=== PATIENT | female | born 1995 | race American Indian/Alaskan Native ===

== ENCOUNTER 2017-09-09 13:00 | Emergency (ER) | payer SELFPAY ==
--- NOTE | 2017-09-09 18:03 | Emergency Department Report ---
ED Upper Extremity Inj HPI - General Chief Complaint: Extremity Injury, Upper Stated Complaint: RIGHT ARM PAIN Time Seen by Provider: 09/09/17 16:18 Source: patient Mode of arrival: Ambulatory Limitations: No Limitations - History of Present Illness Initial Comments: This is a 22-year-old female nontoxic, well nourished in appearance, no acute signs of distress presents to the ED with c/o of right elbow pain x2 days. Patient denies any trauma. Patient stated she wake up of pain. Patient describes pain as aching with level of 8/10. 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 Patient denies any joint swelling, joint redness, decreased ROM, fever, chills, headache, nausea, vomiting, chest pain, shortness of breathe, numbness, tingling, abdominal pain, or back pain. Patient denies any allergies or significant PMH. MD Complaint: Injury to:: right, elbow -: days(s) (2) Other Extremity Injury: Elbow: Left Other Injuries: none Place: home Severity scale (0 -10): 8 Improves With: immobilization Worsens With: movement of extremity Associated Symptoms: denies other symptoms. denies: weakness, numbness, neck pain, suspects foreign body, nausea/vomiting, heard/felt popping sensat - Related Data Previous Rx's Medication Instructions Recorded Last Taken Type Cyclobenzaprine [Flexeril] 10 mg PO QHS PRN #7 tablet 09/09/17 Unknown Rx Ibuprofen [Motrin] 600 mg PO Q8H PRN #30 tablet 09/09/17 Unknown Rx Allergies Allergy/AdvReac Type Severity Reaction Status Date / Time No Known Allergies Allergy Unverified 09/09/17 13:13 ED Review of Systems ROS: Stated complaint: RIGHT ARM PAIN Other details as noted in HPI Constitutional: denies: chills, fever Eyes: denies: eye pain, eye discharge, vision change ENT: denies: ear pain, throat pain Respiratory: denies: cough, shortness of breath, wheezing Cardiovascular: denies: chest pain, palpitations Endocrine: no symptoms reported Gastrointestinal: denies: abdominal pain, nausea, diarrhea Genitourinary: denies: urgency, dysuria, discharge Musculoskeletal: arthralgia. denies: back pain, joint swelling Skin: denies: rash, lesions Neurological: denies: headache, weakness, paresthesias Psychiatric: denies: anxiety, depression Hematological/Lymphatic: denies: easy bleeding, easy bruising ED Past Medical Hx - Past Medical History Previous Medical History?: No Additional medical history: "White Coat syndrome" - Surgical History Past Surgical History?: No - Social History Smoking Status: Never Smoker Substance Use Type: None - Medications Home Medications: Home Medications Medication Instructions Recorded Confirmed Last Taken Type Cyclobenzaprine [Flexeril] 10 mg PO QHS PRN #7 tablet 09/09/17 Unknown Rx Ibuprofen [Motrin] 600 mg PO Q8H PRN #30 tablet 09/09/17 Unknown Rx ED Physical Exam - General Limitations: No Limitations General appearance: alert, in no apparent distress - Head Head exam: Present: atraumatic, normocephalic - Eye Eye exam: Present: normal appearance, PERRL, EOMI Pupils: Present: normal accommodation - ENT ENT exam: Present: normal exam, normal orophraynx, mucous membranes moist, TM's normal bilaterally, normal external ear exam - Neck Neck exam: Present: normal inspection, full ROM. Absent: tenderness, meningismus, lymphadenopathy, thyromegaly - Respiratory Respiratory exam: Present: normal lung sounds bilaterally. Absent: respiratory distress, wheezes, rales, rhonchi, stridor, chest wall tenderness, accessory muscle use, decreased breath sounds, prolonged expiratory - Cardiovascular Cardiovascular Exam: Present: regular rate, normal rhythm, normal heart sounds. Absent: irregular rhythm, systolic murmur, diastolic murmur, rubs, gallop - GI/Abdominal GI/Abdominal exam: Present: soft, normal bowel sounds. Absent: distended, tenderness, guarding, rebound, rigid, diminished bowel sounds - Rectal Rectal exam: Present: deferred - Extremities Exam Extremities exam: Present: normal inspection, full ROM, tenderness, normal capillary refill. Absent: pedal edema, joint swelling, calf tenderness - Expanded Upper Extremity Exam Right General: Present: normal inspection Shoulder Exam: Present: normal inspection, full ROM Upper Arm exam: Present: normal inspection, full ROM Elbow exam: Present: normal inspection, full ROM, tenderness. Absent: swelling , abrasion, laceration, ecchymosis, deformity, crepidus, dislocation, erythema, effusion, pain w/ pronation/supination, tenderness over radial head Forearm Wrist exam: Present: normal inspection, full ROM. Absent: tenderness, swelling, abrasion, laceration, ecchymosis, deformity, crepidus, dislocation, erythema, tenderness over anatomical snuff box, pain with axial thumb loading Hand Wrist exam: Present: normal inspection, full ROM. Absent: tenderness, swelling, abrasion, laceration, ecchymosis, deformity, crepidus, dislocation, erythema, amputation, nail avulsion, subungual hematoma Neuro motor exam: Present: wrist extension intact, thumb opposition intact, thumb IP flexion intact, thumb adduction intact, fingers 2-5 abduction intact Neurosensory exam: Present: 2-point discrimination, radial nerve intact, ulnar nerve intact, median nerve intact Vascular: Present: vascular compromise, normal capillary refill, radial pulse, brachial pulse, ulnar pulse - Back Exam Back exam: Present: normal inspection, full ROM. Absent: tenderness, CVA tenderness (R), CVA tenderness (L), muscle spasm, paraspinal tenderness, vertebral tenderness, rash noted - Neurological Exam Neurological exam: Present: alert, oriented X3, CN II-XII intact, normal gait, reflexes normal - Psychiatric Psychiatric exam: Present: normal affect, normal mood - Skin Skin exam: Present: warm, dry, intact, normal color. Absent: rash ED Course Vital Signs 09/09/17 13:08 Temperature 98.3 F Pulse Rate 98 H Respiratory 18 Rate Blood Pressure 173/82 O2 Sat by Pulse 100 Oximetry - Reevaluation(s) Reevaluation #1: 09/09/17 18:07 Patient is speaking in full sentences with no signs of distress noted. ED Medical Decision Making - Medical Decision Making This is a 22-year-old female that presents with elbow strain vs muscle strain x2 days. Patient was examined by me and patient is stable. X-ray has been obtained and dictated by radiologist within normal limits. Patient is notified of x-ray results with no questionable condition. There is no joint swelling or joint redness. No pain on the lateral epicondy region. Patient received Motrin in the ED. Patient also received a shoulder immobilizer in the ED for pain. Patient was instructed to RICE therapy. Patient was instructed to Follow-up with a orthopedic doctor in 3-5 days or if symptoms worsen and continue return to emergency room as soon as possible. At time of discharge, the patient does not seem toxic or ill in appearance. No acute signs of distress noted. Patient agrees to discharge treatment plan of care. No further questions noted by the patient.. Critical care attestation.: If time is entered above; I have spent that time in minutes in the direct care of this critically ill patient, excluding procedure time. ED Disposition Clinical Impression: Strain of elbow, left Qualifiers: Encounter type: initial encounter Qualified Code(s): S56.912A - Strain of unspecified muscles, fascia and tendons at forearm level, left arm, initial encounter Disposition: TO HOME OR SELFCARE Is pt being admited?: No Does the pt Need Aspirin: No Condition: Stable Instructions: Elbow Sprain (ED), Arthralgia (ED), RICE Therapy (ED), Ibuprofen (By mouth) Additional Instructions: Follow-up with a orthopedic doctor in 3-5 days or if symptoms worsen and continue return to emergency room as soon as possible. Rest and ice extremity. Prescriptions: Cyclobenzaprine [Flexeril] 10 mg PO QHS PRN #7 tablet PRN Reason: Muscle Spasm Ibuprofen [Motrin] 600 mg PO Q8H PRN #30 tablet PRN Reason: Pain Referrals: PRIMARY CAREMD [Primary Care Provider] - 3-5 Days NOEMY BLAKELY MD [Staff Physician] - 3-5 Days [facility] [Outside] - 3-[address] [facility] [Outside] - 3-5 Days
[2017-09-09] MEDS ORDERED: MOTRIN PO ONE (18:10)
--- NOTE | 2017-09-09 18:29 | XRay Report ---
FINAL REPORT EXAM: XR ELBOW 3+V RT HISTORY: elbow pain TECHNIQUE: AP, lateral, and oblique views of the right elbow PRIORS: None. FINDINGS: No evidence for acute fracture or dislocation is seen. The soft tissues are unremarkable. The anterior fat pad demonstrates a sail sign. The posterior fat pad is visualized. These findings are consistent with a joint effusion. Bony mineralization is normal. IMPRESSION: No acute bony abnormality noted. Joint effusion.
[2017-09-09 18:54] VITALS: BP 143/84
== END 2017-09-09 19:01 | disposition home or self-care (01) ==
LOC: ED 13:00
DX: S56.912A Strain of unspecified muscles, fascia and tendons at forearm level, left arm, initial encounter (principal); M25.521 Pain in right elbow; X58.XXXA Exposure to other specified factors, initial encounter; Y93.89 Activity, other specified; Y99.8 Other external cause status; Y92.009 Unspecified place in unspecified non-institutional (private) residence as the place of occurrence of the external cause

== ENCOUNTER 2018-12-06 12:21 | Inpatient (IN) | payer MEDICAID ==
[2018-12-06] MEDS ORDERED: BRETHINE SUB-Q PRN (14:04)
[2018-12-06] MEDS ORDERED: BRETHINE IVP PRN (14:04)
[2018-12-06] MEDS ORDERED: MINERAL OIL PO PRN (14:04)
[2018-12-06 14:50] LABS: Hemoglobin 12.4 gm/dl (10.1-14.3); Mean Corpuscular HGB Conc 35 % (30-34); Mean Corpuscular Volume 86 fl (79-97); Platelet Count 168 K/mm3 (140-440); Red Blood Count 4.21 M/mm3 (3.65-5.03); Red Cell Distribution Width 12.7 % (13.2-15.2)
[2018-12-06] MEDS ORDERED: PITOCin/NS 30 UNIT/500ML 30 UNITS/500 ML BAG IV SCH (15:00)
[2018-12-06] MEDS ORDERED: XYLOCAINE 2% INFILTRATI ONE ×2 (15:00→18:45)
[2018-12-06] MEDS ORDERED: AMPICILLIN/NS 2 GM/100 ML 2 GM/100 ML BAG IV ONE (15:04)
[2018-12-06] MEDS ORDERED: CERVIDIL VG ONE (15:04)
[2018-12-06 17:26] LABS: Alanine Aminotransferase 8 units/L (7-56); Uric Acid 6.6 mg/dL (3.5-7.6)
--- NOTE | 2018-12-06 18:56 | History and Physical Report ---
History of Present Illness Date of examination: 12/06/18 Date of admission: 12/06/18 12:21 Chief complaint: Sent from office for induction of labor History of present illness: 23 year old sent to L&D from office for induction of labor due to elevated blood pressure. Patient states she was seen at [facility] office today and they recommended induction of labor. Patient received care at [facility] office and was comanaged by [facility]. LMP 03/08/2018. EDC 12/13/2018. significant for the following: chronic hypertension (on Labetalol 200 mg po BID), maternal obesity, maternal tachycardia (seen by [facility]), sickle cell trait (FOB negative), vitamin D deficiency (supplemented with Vitamin D), GBS positive. labs are as follows: A+, antibody screen negative, pap smear negative, rubella immune, RPR nonreactive, hepatitis B surface antigen negative, HIV negative, sickle cell trait, GC negative, CT negative, trichomonas negative, GBS positive, quad screen negative, 1 hour sugar test 127. Past History Past Medical History: hypertension, other (obesity, sickle cell trait, tachycardia) Past Surgical History: no surgical history [facility] History: denies: abnormal PAP smear, chlamydia, gonorrhea, hepatitis B, hepatitis C, herpes, HIV, syphilis, trichomonas Family/Genetic History: diabetes, hypertension, stroke, cancer, other (asthma) Social history: lives with family, full code. denies: smoking, alcohol abuse, prescription drug abuse, IV drug use - Obstetrical History Expected Date of Delivery: 12/13/18 Actual Gestation: 39 Week(s) 0 Day(s) : 1 Para: 0 Hx # Term Pregnancies: 1 Number of Pregnancies: 0 Spontaneous Abortions: 0 Induced : 0 Number of Living Children: 0 Medications and Allergies Allergies Allergy/AdvReac Type Severity Reaction Status Date / Time No Known Allergies Allergy Unverified 09/09/17 13:13 Home Medications Medication Instructions Recorded Confirmed Last Taken Type Labetalol 200 mg PO BID 12/06/18 12/06/18 12/06/18 History 400 mg Active Meds: Active Medications Acetaminophen (Tylenol) 650 mg PO Q6H PRN PRN Reason: Pain, Mild (1-3) Docusate Sodium (Colace) 100 mg PO BID [facility] Ephedrine Sulfate (Ephedrine Sulfate) 10 mg IV Q2M PRN PRN Reason: Hypotension Famotidine (Pepcid) 20 mg PO BID [facility] Oxytocin/Sodium Chloride (Pitocin/Ns 20 Unit/1000ml Drip) 20 units in 1,000 mls @ 125 mls/hr IV DIRECT [facility] Oxytocin/Sodium Chloride (Pitocin/Ns 30 Unit/500ml) 30 units in 500 mls @ 1 mls/hr IV TITR [facility]; Protocol Lactated Ringer's (Lactated Ringers) 1,000 mls @ 125 mls/hr IV DIRECT [facility] Ampicillin Sodium (Ampicillin/Ns 1 Gm/50 Ml) 1 gm in 50 mls @ 100 mls/hr IV Q4HR [facility]; Protocol Labetalol HCl (Normodyne) 200 mg PO BID [facility] Mineral Oil (Mineral Oil) 30 ml PO QHS PRN PRN Reason: Constipation Terbutaline Sulfate (Brethine) 0.25 mg SUB-Q ONCE PRN PRN Reason: Hyperstimulation/Hypertonicity Review of Systems Constitutional: no fever, no chills, no fatigue, no weakness Eyes: no loss of vision Cardiovascular: no chest pain, no palpitations, no lightheadedness, no shortness of breath Gastrointestinal: no abdominal pain, no nausea, no vomiting Genitourinary: no vaginal bleeding, no leakage of fluid, no dysuria, no genital sores Integumentary: no blisters Neurological: no headaches, no migraines, no double vision - Vital Signs Vital signs: Vital Signs Pulse BP 116 H 187/100 12/06/18 13:16 12/06/18 13:16 Temp Pulse Resp BP Pulse Ox 99.7 F H 120 H 18 122/59 97 12/06/18 17:45 12/06/18 17:54 12/06/18 13:38 12/06/18 17:54 12/06/18 13:38 - Physical Exam Abdomen: Positive: normal appearance, soft. Negative: distention, tenderness, guarding, rigidity Genitourinary (Female): Positive: normal external genitalia, normal perenium. Negative: perineal/vulvar lesions Vagina: Positive: normal moisture Uterus: Positive: enlarged (size=dates) Anus/Rectum: Positive: normal perianal skin Extremities: Positive: normal. Negative: tenderness, edema - Obstetrical FHR: category 1 Uterine Contraction Monitor Mode: External Cervical Dilatation: 0 (Per RN cervix is closed and thick) Uterine Contraction Pattern: Absent Results Result Diagrams: 12/06/18 14:27 12/06/18 16:24 Abnormal lab results 12/06/18 12/06/18 Range/Units 14:27 16:24 MCHC 35 H (30-34) % RDW 12.7 L (13.2-15.2) % Creatinine 0.6 L (0.7-1.2) mg/dL All other labs normal. Assessment and Plan A: at 39 weeks gestation. Chronic hypertension (takes Labetalol). Maternal tachycardia (has been evaluated by [facility]) GBS positive. Obesity. P: Admit. Cervidil for cervical ripening, followed by Pitocin induction of labor. GBS prophylaxis. PIH labs, BP monitoring. Continue Labetalol. Discussed with patient risks and benefits of Cervidil cervical ripening and Pitocin induction of labor. Patient consented to Cervidil cervical ripening and Pitocin induction of labor.
[2018-12-06] MEDS: TYLENOL PO PRN (19:46)
[2018-12-06] MEDS ORDERED: PEPCID ONE (19:47)
[2018-12-06] MEDS: PEPCID PO SCH (19:48)
[2018-12-06] MEDS: COLACE PO SCH (21:23)
[2018-12-06] MEDS ORDERED: NORMODYNE PO SCH (22:00)
[2018-12-06 22:40] LABS: Bilirubin,Urine NEG (Negative); Blood,Urine NEG (Negative); Color,Urine Yellow (Yellow); Mucus,Urine FEW /HPF; Protein,Urine <15 mg/dL mg/dL (Negative); Urobilinogen,Urine < 2.0 mg/dL (<2.0); WBC,Urine < 1.0 /HPF (0.0-6.0)
[2018-12-06 23:16] LABS: Amphetamine Screen,Urine PRESUMPTIVE NEGATIVE; Benzodiazepines Screen,Urine PRESUMPTIVE NEGATIVE; Cannabinoid Screen,Urine PRESUMPTIVE NEGATIVE; Cocaine Screen,Urine PRESUMPTIVE NEGATIVE; Methadone Screen,Urine PRESUMPTIVE NEGATIVE; Opiate Screen,Urine PRESUMPTIVE NEGATIVE
[2018-12-07] MEDS ORDERED: CERVIDIL VG ONE (04:41)
--- NOTE | 2018-12-07 09:38 | Progress Note ---
Assessment and Plan A: at 39 weeks, 1 day gestation. Chronic hypertension. GBS positive. Maternal tachycardia. P: Continue Cervidil cervical ripening. Plan Pitocin induction of labor after ripening complete. Hold Labetalol for now due to low BPs. Subjective - Subjective Date of service: 12/07/18 Principal diagnosis: Term ; chronic hypertension Interval history: having cervical ripening and labor induction due to chronic hypertension. BPs have been controlled; patient denies headache, visual disturbance, N/V, abdominal or epigastric pain. Patient reports active movement. She denies contractions, LOF, or VB. Patient reports: movement normal, no loss of fluid, no vaginal bleeding, no contractions Objective - Vital Signs Vital Signs: Vital Signs - 12hr 12/06/18 12/06/18 12/06/18 21:54 22:09 22:18 Temperature 98.0 F Pulse Rate 103 H 110 H Respiratory 18 Rate Blood Pressure 110/70 102/65 O2 Sat by Pulse Oximetry 12/06/18 12/06/18 12/06/18 22:55 23:05 23:54 Temperature Pulse Rate 102 H 108 H 110 H Respiratory Rate Blood Pressure 95/55 99/55 88/53 O2 Sat by Pulse Oximetry 12/07/18 12/07/18 12/07/18 00:53 01:53 02:26 Temperature Pulse Rate 100 H 96 H 99 H Respiratory Rate Blood Pressure 95/55 89/51 112/67 O2 Sat by Pulse Oximetry 12/07/18 12/07/18 12/07/18 02:55 03:54 05:20 Temperature 98.1 F Pulse Rate 96 H 99 H 99 H Respiratory 18 Rate Blood Pressure 98/57 95/51 O2 Sat by Pulse 98 Oximetry 12/07/18 12/07/18 12/07/18 05:21 05:25 05:30 Temperature Pulse Rate 100 H 105 H 108 H Respiratory Rate Blood Pressure 102/58 O2 Sat by Pulse 97 97 Oximetry 12/07/18 12/07/18 12/07/18 05:35 05:53 06:53 Temperature Pulse Rate 98 H 100 H 101 H Respiratory Rate Blood Pressure 98/53 97/53 O2 Sat by Pulse 97 Oximetry 12/07/18 12/07/18 07:54 08:54 Temperature Pulse Rate 100 H 120 H Respiratory Rate Blood Pressure 98/54 126/77 O2 Sat by Pulse Oximetry - Exam Abdomen: Present: normal appearance, soft. Absent: distention, tenderness, guarding, rigidity Uterus: Present: normal, firm, fundal height above umbilicus. Absent: bogginess, tenderness FHR: category 1 Uterine Contraction Monitor Mode: External Cervical Dilatation: 0 (Cervix closed and thick at 3 AM.) Uterine Contraction Pattern: Absent Extremities: normal - Labs Labs: Abnormal Labs 12/06/18 12/06/18 14:27 16:24 MCHC 35 H RDW 12.7 L Creatinine 0.6 L Laboratory Results - last 24 hr 12/06/18 12/06/18 12/06/18 14:27 14:27 16:24 WBC 6.8 RBC 4.21 Hgb 12.4 Hct 36.0 MCV 86 MCH 30 MCHC 35 H RDW 12.7 L Plt Count 168 Creatinine 0.6 L Estimated GFR > 60 Uric Acid 6.6 AST 13 ALT 8 Lactate Dehydrogenase 166 Urine Color Urine Turbidity Urine pH Ur Specific [place] Urine Protein Urine Glucose (UA) Urine Ketones Urine Blood Urine Nitrite Urine Bilirubin Urine Urobilinogen Ur Leukocyte Esterase Urine WBC (Auto) Urine RBC (Auto) U Epithel Cells (Auto) Urine Mucus Urine Opiates Screen Urine Methadone Screen Ur Barbiturates Screen Ur Phencyclidine Scrn Ur Amphetamines Screen U Benzodiazepines Scrn Urine Cocaine Screen U Marijuana (THC) Screen Drugs of Abuse Note Influenza A (Rapid) Influenza B (Rapid) Blood Type A POSITIVE Antibody Screen Negative 12/06/18 12/06/18 12/06/18 22:00 Unknown Unknown WBC RBC Hgb Hct MCV MCH MCHC RDW Plt Count Creatinine Estimated GFR Uric Acid AST ALT Lactate Dehydrogenase Urine Color Yellow Urine Turbidity Clear Urine pH 6.0 Ur Specific [place] 1.016 Urine Protein <15 mg/dl Urine Glucose (UA) Neg Urine Ketones Neg Urine Blood Neg Urine Nitrite Neg Urine Bilirubin Neg Urine Urobilinogen < 2.0 Ur Leukocyte Esterase Neg Urine WBC (Auto) < 1.0 Urine RBC (Auto) 1.0 U Epithel Cells (Auto) < 1.0 Urine Mucus Few Urine Opiates Screen Presumptive negative Urine Methadone Screen Presumptive negative Ur Barbiturates Screen Presumptive negative Ur Phencyclidine Scrn Presumptive negative Ur Amphetamines Screen Presumptive negative U Benzodiazepines Scrn Presumptive negative Urine Cocaine Screen Presumptive negative U Marijuana (THC) Screen Presumptive negative Drugs of Abuse Note Disclamer Influenza A (Rapid) Negative Influenza B (Rapid) Negative Blood Type Antibody Screen
--- NOTE | 2018-12-07 17:21 | Event Note ---
Date: 12/07/18 SVE /-2. Cervidil removed.
[2018-12-07] MEDS ORDERED: PITOCin/NS 30 UNIT/500ML 30 UNITS/500 ML BAG IV SCH (21:00)
[2018-12-07] MEDS: LACTATED RINGERS 1,000 ML IV SCH (21:00)
[2018-12-07] MEDS ORDERED: AMPICILLIN/NS 2 GM/100 ML 2 GM/100 ML BAG IV ONE (22:00)
[2018-12-08] MEDS: AMPICILLIN/NS 1 GM/50 ML 1 GM/50 ML BAG IV SCH ×4 (01:40→17:02)
[2018-12-08] MEDS: LACTATED RINGERS 1,000 ML IV SCH ×2 (01:41→08:12)
--- NOTE | 2018-12-08 09:43 | Progress Note ---
Assessment and Plan A: at 39 weeks, 2 days gestation. Chronic hypertension. GBS positive. Maternal tachycardia. P: Continue Pitocin induction of labor. Continuous EFM. GBS prophylaxis. Subjective - Subjective Date of service: 12/08/18 Principal diagnosis: Term ; chronic hypertension Interval history: having having labor induced at 39 weeks, 2 days gestation. Patient is feeling some light contractions. She denies LOF or VB. Patient reports active movement. Patient denies headache, visual disturbance, nausea or vomiting, abdominal or epigastric pain, or swelling. Patient reports: movement normal, no loss of fluid, no vaginal bleeding, no contractions Objective - Vital Signs Vital Signs: Vital Signs - 12hr 12/07/18 12/07/18 12/07/18 21:44 21:49 21:54 Temperature Pulse Rate 117 H 114 H 110 H Respiratory Rate Blood Pressure O2 Sat by Pulse 97 96 98 Oximetry 12/07/18 12/07/18 12/07/18 21:59 22:01 22:04 Temperature Pulse Rate 109 H 109 H 95 H Respiratory Rate Blood Pressure 106/59 O2 Sat by Pulse 99 99 Oximetry 12/07/18 12/07/18 12/07/18 22:09 22:14 22:19 Temperature Pulse Rate 115 H 118 H 101 H Respiratory Rate Blood Pressure O2 Sat by Pulse 98 96 99 Oximetry 12/07/18 12/07/18 12/07/18 22:22 22:24 22:29 Temperature Pulse Rate 110 H 107 H 112 H Respiratory Rate Blood Pressure O2 Sat by Pulse 91 99 98 Oximetry 12/07/18 12/07/18 12/07/18 22:31 22:34 22:39 Temperature Pulse Rate 109 H 108 H 102 H Respiratory Rate Blood Pressure 113/57 O2 Sat by Pulse 88 98 96 Oximetry 12/07/18 12/07/18 12/07/18 22:44 22:49 22:54 Temperature Pulse Rate 112 H 103 H 107 H Respiratory Rate Blood Pressure O2 Sat by Pulse 98 98 96 Oximetry 12/07/18 12/07/18 12/07/18 22:59 23:01 23:02 Temperature Pulse Rate 111 H 106 H 109 H Respiratory Rate Blood Pressure 128/68 O2 Sat by Pulse 97 0 L Oximetry 12/07/18 12/07/18 12/07/18 23:04 23:09 23:14 Temperature Pulse Rate 109 H 113 H 112 H Respiratory Rate Blood Pressure O2 Sat by Pulse 98 97 97 Oximetry 12/07/18 12/07/18 12/07/18 23:19 23:24 23:29 Temperature Pulse Rate 113 H 104 H 103 H Respiratory Rate Blood Pressure O2 Sat by Pulse 96 98 96 Oximetry 12/07/18 12/07/18 12/07/18 23:30 23:31 23:34 Temperature 98.3 F Pulse Rate 93 H 100 H Respiratory 18 Rate Blood Pressure 113/62 O2 Sat by Pulse 97 Oximetry 12/07/18 12/07/18 12/07/18 23:39 23:44 23:49 Temperature Pulse Rate 112 H 105 H 94 H Respiratory Rate Blood Pressure O2 Sat by Pulse 98 98 98 Oximetry 12/07/18 12/07/18 12/08/18 23:54 23:59 00:01 Temperature Pulse Rate 107 H 94 H 103 H Respiratory Rate Blood Pressure 110/67 O2 Sat by Pulse 99 99 Oximetry 12/08/18 12/08/18 12/08/18 00:11 00:16 00:21 Temperature Pulse Rate 100 H 99 H 110 H Respiratory Rate Blood Pressure O2 Sat by Pulse 98 97 95 Oximetry 12/08/18 12/08/18 12/08/18 00:22 00:26 00:31 Temperature Pulse Rate 106 H 101 H 87 Respiratory Rate Blood Pressure O2 Sat by Pulse 87 96 96 Oximetry 12/08/18 12/08/18 12/08/18 00:32 00:36 00:42 Temperature Pulse Rate 102 H 100 H 109 H Respiratory Rate Blood Pressure 104/58 O2 Sat by Pulse 94 96 98 Oximetry 12/08/18 12/08/18 12/08/18 00:47 00:52 00:57 Temperature Pulse Rate 105 H 105 H 102 H Respiratory Rate Blood Pressure O2 Sat by Pulse 98 98 98 Oximetry 12/08/18 12/08/18 12/08/18 01:00 01:02 01:07 Temperature 97.9 F Pulse Rate 91 H 95 H Respiratory 18 Rate Blood Pressure 94/53 O2 Sat by Pulse 98 98 Oximetry 12/08/18 12/08/18 12/08/18 01:12 01:17 01:22 Temperature Pulse Rate 94 H 103 H 104 H Respiratory Rate Blood Pressure 91/53 O2 Sat by Pulse 98 97 98 Oximetry 12/08/18 12/08/18 12/08/18 01:27 01:31 01:32 Temperature Pulse Rate 94 H 93 H 95 H Respiratory Rate Blood Pressure 95/53 O2 Sat by Pulse 96 96 Oximetry 12/08/18 12/08/18 12/08/18 01:37 01:42 01:47 Temperature Pulse Rate 93 H 93 H 94 H Respiratory Rate Blood Pressure O2 Sat by Pulse 96 96 96 Oximetry 12/08/18 12/08/18 12/08/18 01:52 01:57 02:02 Temperature Pulse Rate 91 H 94 H 93 H Respiratory Rate Blood Pressure 107/62 O2 Sat by Pulse 96 96 Oximetry 12/08/18 12/08/18 12/08/18 02:03 02:08 02:13 Temperature Pulse Rate 104 H 106 H 86 Respiratory Rate Blood Pressure O2 Sat by Pulse 90 99 98 Oximetry 12/08/18 12/08/18 12/08/18 02:16 02:18 02:23 Temperature Pulse Rate 105 H 85 91 H Respiratory Rate Blood Pressure O2 Sat by Pulse 94 97 96 Oximetry 12/08/18 12/08/18 12/08/18 02:26 02:28 02:31 Temperature Pulse Rate 95 H 93 H 89 Respiratory Rate Blood Pressure 92/54 O2 Sat by Pulse 93 97 Oximetry 12/08/18 12/08/18 12/08/18 02:33 02:38 02:43 Temperature Pulse Rate 100 H 95 H Respiratory Rate Blood Pressure O2 Sat by Pulse 98 97 98 Oximetry 12/08/18 12/08/18 12/08/18 02:48 02:53 02:58 Temperature Pulse Rate 95 H 96 H 95 H Respiratory Rate Blood Pressure O2 Sat by Pulse 98 98 98 Oximetry 12/08/18 12/08/18 12/08/18 03:02 03:03 03:08 Temperature Pulse Rate 146 H 92 H 95 H Respiratory Rate Blood Pressure 118/83 O2 Sat by Pulse 93 99 98 Oximetry 12/08/18 12/08/18 12/08/18 03:13 03:18 03:23 Temperature Pulse Rate 97 H 96 H 88 Respiratory Rate Blood Pressure O2 Sat by Pulse 98 98 97 Oximetry 12/08/18 12/08/18 12/08/18 03:28 03:32 03:33 Temperature Pulse Rate 93 H 91 H 96 H Respiratory Rate Blood Pressure 114/75 O2 Sat by Pulse 97 96 Oximetry 12/08/18 12/08/18 12/08/18 03:38 03:43 03:48 Temperature Pulse Rate 87 95 H 91 H Respiratory Rate Blood Pressure O2 Sat by Pulse 98 96 98 Oximetry 12/08/18 12/08/18 12/08/18 03:53 04:16 04:17 Temperature 98.1 F Pulse Rate 92 H 93 H 93 H Respiratory 18 Rate Blood Pressure 97/54 O2 Sat by Pulse 97 Oximetry 12/08/18 12/08/18 12/08/18 04:30 05:01 05:05 Temperature Pulse Rate 90 90 113 H Respiratory Rate Blood Pressure 92/50 99/55 O2 Sat by Pulse 97 Oximetry 12/08/18 12/08/18 12/08/18 05:31 06:01 06:31 Temperature Pulse Rate 89 95 H 113 H Respiratory Rate Blood Pressure 102/53 97/50 98/54 O2 Sat by Pulse 99 99 Oximetry 12/08/18 12/08/18 12/08/18 06:34 06:36 06:41 Temperature Pulse Rate 109 H 88 93 H Respiratory Rate Blood Pressure O2 Sat by Pulse 93 95 96 Oximetry 12/08/18 12/08/18 12/08/18 06:46 06:50 06:51 Temperature Pulse Rate 84 99 H 96 H Respiratory Rate Blood Pressure O2 Sat by Pulse 96 94 96 Oximetry 12/08/18 12/08/18 12/08/18 06:56 06:58 07:01 Temperature Pulse Rate 89 84 90 Respiratory Rate Blood Pressure O2 Sat by Pulse 98 94 99 Oximetry 12/08/18 12/08/18 12/08/18 07:02 07:05 07:06 Temperature Pulse Rate 89 92 H 91 H Respiratory Rate Blood Pressure 90/54 O2 Sat by Pulse 94 97 Oximetry 12/08/18 12/08/18 12/08/18 07:11 07:16 07:21 Temperature Pulse Rate 91 H 84 99 H Respiratory Rate Blood Pressure O2 Sat by Pulse 98 97 97 Oximetry 12/08/18 12/08/18 12/08/18 07:26 07:31 07:32 Temperature Pulse Rate 101 H 103 H 93 H Respiratory Rate Blood Pressure 111/59 O2 Sat by Pulse 97 99 Oximetry 12/08/18 12/08/18 12/08/18 07:36 07:41 07:46 Temperature Pulse Rate 100 H 101 H 96 H Respiratory Rate Blood Pressure O2 Sat by Pulse 98 99 99 Oximetry 12/08/18 12/08/18 12/08/18 07:51 08:08 08:31 Temperature Pulse Rate 100 H 90 92 H Respiratory Rate Blood Pressure 115/69 97/55 O2 Sat by Pulse 99 Oximetry 12/08/18 12/08/18 09:01 09:32 Temperature Pulse Rate 103 H 115 H Respiratory Rate Blood Pressure 115/64 128/75 O2 Sat by Pulse Oximetry - Exam Abdomen: Present: normal appearance, soft. Absent: distention, tenderness, guarding, rigidity Uterus: Present: normal, fundal height above umbilicus. Absent: tenderness FHR: category 1 Uterine Contraction Monitor Mode: External Uterine Contraction Pattern: Irregular Uterine Contraction Intensity: Mild Extremities: normal - Labs Labs: Abnormal Labs 12/06/18 12/06/18 14:27 16:24 MCHC 35 H RDW 12.7 L Creatinine 0.6 L Laboratory Results - last 24 hr 12/06/18 14:27 RPR Nonreactive
[2018-12-08] MEDS ORDERED: PITOCin/NS 30 UNIT/500ML 30 UNITS/500 ML BAG IV SCH (10:45)
[2018-12-08] MEDS: PEPCID PO SCH (12:03)
--- NOTE | 2018-12-08 20:28 | Event Note ---
Date: 12/08/18 Pitocin was stopped at 6 PM. SVE at that time: 2.5/60/-2. Allow patient to eat supper and shower. Plan to restart Pitocin at 9 PM tonight.
--- NOTE | 2018-12-09 10:15 | Progress Note ---
Assessment and Plan - Patient Problems (1) 39 weeks gestation of Current Visit: Yes Status: Acute (2) Chronic hypertension affecting Current Visit: Yes Status: Acute Plan to address problem: BPs stable PIH labs wnl Continue current management (3) Encounter for induction of labor Current Visit: Yes Status: Acute Plan to address problem: Discussed plan of care with Dr. Brooke and patient Will continue cervical ripening with Cervidil, and later Oxytocin if indicated Anticipate vaginal delivery (4) Group B Streptococcus carrier, +RV culture, currently Current Visit: Yes Status: Acute Plan to address problem: Hold Ampicillin and continue when in active labor Subjective - Subjective Date of service: 12/09/18 Principal diagnosis: IUP @ 39 wks; Chronic HTN Interval history: See H&P, OB Progress Notes and Event Notes Patient reports: movement normal, contractions (mild), no loss of fluid, no vaginal bleeding Objective - Vital Signs Vital Signs: Vital Signs - 12hr 12/08/18 12/08/18 12/08/18 22:20 22:50 23:00 Temperature 97.8 F Pulse Rate 101 H 102 H Respiratory 18 Rate Blood Pressure 98/55 93/54 Blood Pressure [Left] O2 Sat by Pulse Oximetry 12/08/18 12/08/18 12/09/18 23:22 23:50 00:20 Temperature Pulse Rate 104 H 96 H 86 Respiratory Rate Blood Pressure 95/53 99/54 93/46 Blood Pressure [Left] O2 Sat by Pulse Oximetry 12/09/18 12/09/18 12/09/18 00:51 01:51 02:13 Temperature 98.4 F Pulse Rate 90 96 H Respiratory 16 Rate Blood Pressure 88/52 106/57 Blood Pressure [Left] O2 Sat by Pulse Oximetry 12/09/18 12/09/18 12/09/18 02:21 02:50 03:20 Temperature Pulse Rate 86 87 86 Respiratory Rate Blood Pressure 108/63 98/53 95/52 Blood Pressure [Left] O2 Sat by Pulse Oximetry 12/09/18 12/09/18 12/09/18 03:50 04:21 04:51 Temperature Pulse Rate 88 93 H 85 Respiratory Rate Blood Pressure 101/54 95/52 104/58 Blood Pressure [Left] O2 Sat by Pulse Oximetry 12/09/18 12/09/18 12/09/18 05:20 05:50 06:20 Temperature Pulse Rate 97 H 90 93 H Respiratory Rate Blood Pressure 120/61 107/57 107/55 Blood Pressure [Left] O2 Sat by Pulse Oximetry 12/09/18 12/09/18 12/09/18 06:50 07:20 08:20 Temperature Pulse Rate 94 H 86 83 Respiratory Rate Blood Pressure 97/53 99/54 91/44 Blood Pressure [Left] O2 Sat by Pulse Oximetry 12/09/18 12/09/18 12/09/18 08:50 09:17 09:18 Temperature 98.1 F Pulse Rate 111 H 113 H 112 H Respiratory 16 Rate Blood Pressure 112/72 113/67 Blood Pressure 113/67 [Left] O2 Sat by Pulse 99 98 Oximetry 12/09/18 12/09/18 09:20 09:50 Temperature Pulse Rate 102 H 100 H Respiratory Rate Blood Pressure 108/70 101/56 Blood Pressure [Left] O2 Sat by Pulse Oximetry - Exam Abdomen: Present: normal appearance, soft Vulva: both: normal FHR: auscultation normal, category 1 FHR comments: baseline 130, moderate variability, 15x15 accels, no decels Cervical Dilatation: 2 Cervical Effacement Percentage: 50 station: -2 Uterine Contraction Pattern: Irregular - Labs Labs: Abnormal Labs 12/06/18 12/06/18 14:27 16:24 MCHC 35 H RDW 12.7 L Creatinine 0.6 L
[2018-12-09] MEDS ORDERED: CERVIDIL VG ONE (10:52)
--- NOTE | 2018-12-09 15:20 | Progress Note ---
Assessment and Plan - Patient Problems (1) 39 weeks gestation of Current Visit: Yes Status: Acute (2) Chronic hypertension affecting Current Visit: Yes Status: Acute Plan to address problem: BP has been stable. Patient does not have any signs and symptoms of pre- eclampsia. Toxemia labs were normal. tracing is CAT1. I discussed the labor induction process with the patient. I told her that inductions fail at times and that normally requires delivery via C/section if BP is unstable, she has signs and symptoms of pre-eclampsia, status is non-reassuring, her membranes have been ruptured (prolonged), she has been in labor without making cervical changes. I further discuss her status being stable and the baby's status being reassuring. Since she already has a cervidil placed at 10:30 today which is scheduled to removed at 10:30 PM tonight, I told her that I can give her more time to see if she will respond to the induction. She agreed with this plan. Will continue monitoring and BP monitoring. Will reassess her cervix tonight. (3) Group B Streptococcus carrier, +RV culture, currently Current Visit: Yes Status: Acute Plan to address problem: For IV antibiotics in active labor. (4) Encounter for induction of labor Current Visit: Yes Status: Acute Subjective - Subjective Date of service: 12/09/18 Principal diagnosis: IUP @ 39 wks and 4 days ; Chronic HTN Interval history: Patient is a 23 year old , EDC 12/13/18 at 39 weeks an 4 days gestation who was admitted for labor induction for chronic HTN. She is a patient of [facility] who has been co-managed with [facility] for CHTN. She was admitted for labor induction on 12/06/18 as per [facility] recommendation. Since her admission, her BP has been stable in the 110/70's. Toxemia labs were normal. She denied any headache, visual disturbances or RUQ pain. She received one dose of cervidil on 12/06. She was started on pitocin on 12/07. It was discontinued yesterday to allow patient time to shower and eat. At that time, her cervix was 1-2 cm/50%/-3. She has been off pitocin since last night. This AM, she remained at 1 cm/50%/-3 as per dice maker's exam. tracing has been CAT1. Outside Machinist Apprentice inserted another cervidil. Patient reports: movement normal, contractions (mild), no loss of fluid, no vaginal bleeding Objective - Vital Signs Vital Signs: Vital Signs - 12hr 12/09/18 12/09/18 12/09/18 03:20 03:50 04:21 Temperature Pulse Rate 86 88 93 H Respiratory Rate Blood Pressure 95/52 101/54 95/52 Blood Pressure [Left] O2 Sat by Pulse Oximetry 12/09/18 12/09/18 12/09/18 04:51 05:20 05:50 Temperature Pulse Rate 85 97 H 90 Respiratory Rate Blood Pressure 104/58 120/61 107/57 Blood Pressure [Left] O2 Sat by Pulse Oximetry 12/09/18 12/09/18 12/09/18 06:20 06:50 07:20 Temperature Pulse Rate 93 H 94 H 86 Respiratory Rate Blood Pressure 107/55 97/53 99/54 Blood Pressure [Left] O2 Sat by Pulse Oximetry 12/09/18 12/09/18 12/09/18 08:20 08:50 09:17 Temperature 98.1 F Pulse Rate 83 111 H 113 H Respiratory 16 Rate Blood Pressure 91/44 112/72 Blood Pressure 113/67 [Left] O2 Sat by Pulse 99 Oximetry 12/09/18 12/09/18 12/09/18 09:18 09:20 09:50 Temperature Pulse Rate 112 H 102 H 100 H Respiratory Rate Blood Pressure 113/67 108/70 101/56 Blood Pressure [Left] O2 Sat by Pulse 98 Oximetry 12/09/18 12/09/18 12/09/18 10:20 10:50 11:21 Temperature Pulse Rate 98 H 92 H 103 H Respiratory Rate Blood Pressure 111/64 104/54 119/70 Blood Pressure [Left] O2 Sat by Pulse Oximetry 12/09/18 12/09/18 12/09/18 11:50 12:21 12:50 Temperature Pulse Rate 105 H 93 H 109 H Respiratory Rate Blood Pressure 101/62 109/57 117/70 Blood Pressure [Left] O2 Sat by Pulse Oximetry 12/09/18 12/09/18 12/09/18 13:20 13:51 14:20 Temperature Pulse Rate 102 H 104 H 87 Respiratory Rate Blood Pressure 112/72 121/57 101/56 Blood Pressure [Left] O2 Sat by Pulse Oximetry 12/09/18 14:50 Temperature Pulse Rate 88 Respiratory Rate Blood Pressure 94/51 Blood Pressure [Left] O2 Sat by Pulse Oximetry - Exam Cardiovascular: Normal S1, Normal S2 Lungs: Clear to auscultation Vulva: both: normal FHR: category 1 Uterine Contraction Monitor Mode: External Cervical Dilatation: 1 Cervical Effacement Percentage: 50 station: -3 Uterine Contraction Pattern: Absent Deep Tendon Reflex Grade: Normal +2 - Labs Labs: Abnormal Labs 12/06/18 12/06/18 14:27 16:24 MCHC 35 H RDW 12.7 L Creatinine 0.6 L - Results US- obstetric: report reviewed
[2018-12-09] MEDS: COLACE PO SCH ×2 (21:36→22:00)
[2018-12-09] MEDS: PEPCID PO SCH ×2 (21:36→22:00)
[2018-12-09] MEDS: LACTATED RINGERS 1,000 ML IV SCH (21:37)
[2018-12-09] MEDS: AMPICILLIN/NS 1 GM/50 ML 1 GM/50 ML BAG IV SCH (21:37)
[2018-12-10] MEDS: AMPICILLIN/NS 1 GM/50 ML 1 GM/50 ML BAG IV SCH ×3 (07:13→16:52)
[2018-12-10] MEDS: COLACE PO SCH ×2 (07:15→09:24)
[2018-12-10] MEDS: PEPCID PO SCH (09:24)
[2018-12-10] MEDS: LACTATED RINGERS 1,000 ML IV SCH ×4 (09:24→18:12)
[2018-12-10 10:49] LABS: Hemoglobin 11.3 gm/dl (10.1-14.3); Mean Corpuscular HGB Conc 33 % (30-34); Mean Corpuscular Volume 87 fl (79-97); Platelet Count 147 K/mm3 (140-440); Red Blood Count 3.91 M/mm3 (3.65-5.03); Red Cell Distribution Width 13.2 % (13.2-15.2)
--- NOTE | 2018-12-10 10:54 | Event Note ---
PLACEMENT OF COOKS CATHETER Patient was verbally consented for procedure. Benefit of shortening labor was offered and patient agreed to procedure. She was placed in the dorsal lithotomy procedure. Cervix 3/60/-2. A Cook's catheter was placed intrauterine. TOTAL volume Uterine bulb - 40 cc TOTAL volume Vaginal bulb - 30 cc Membranes were ruptured during placement of catheter. Clear fluid. Pitocin 16mu NST: Category I FHT Patient tolerated procedure well. Anticipate .
--- NOTE | 2018-12-10 10:56 | Progress Note ---
Assessment and Plan - Patient Problems (1) Encounter for induction of labor Current Visit: Yes Status: Acute Plan to address problem: Continue routine labor orders Continue Pitocin augmentation as tolerated Consult with physician regarding POC (2) Group B Streptococcus carrier, +RV culture, currently Current Visit: Yes Status: Acute Plan to address problem: Continue GBS prophylaxis per hospital policy (3) Chronic hypertension affecting Current Visit: Yes Status: Acute Subjective - Subjective Date of service: 12/10/18 (9780) Principal diagnosis: IUP @ 39 wks and 4 days ; IOL for Chronic HTN Interval history: See admission H & P and OB progress notes Patient reports: movement normal, contractions (mild), no new complaints, no loss of fluid, no vaginal bleeding Objective - Vital Signs Vital Signs: Vital Signs - 12hr 12/09/18 12/10/18 12/10/18 23:21 01:41 02:41 Pulse Rate 94 H 104 H 100 H Blood Pressure 89/47 114/68 107/57 12/10/18 12/10/18 12/10/18 03:42 04:41 05:42 Pulse Rate 98 H 96 H 90 Blood Pressure 122/56 89/54 100/51 12/10/18 12/10/18 12/10/18 05:55 06:42 07:43 Pulse Rate 90 85 99 H Blood Pressure 108/50 102/56 121/82 12/10/18 12/10/18 12/10/18 09:21 09:42 10:42 Pulse Rate 89 94 H 100 H Blood Pressure 116/72 106/58 138/81 - Exam Breasts: deferred Cardiovascular: Regular rate Lungs: Normal air movement Abdomen: Present: other (gravid) Uterus: Present: other (S=D) FHR: category 1 Uterine Contraction Monitor Mode: External Cervical Dilatation: 3 Cervical Effacement Percentage: 60 station: -3 Uterine Contraction Frequency (min): 3-4 Uterine Contraction Pattern: Irregular Uterine Tone Measurement Phase: Resting Uterine Contraction Intensity: Mild Extremities: normal Deep Tendon Reflex Grade: Normal +2 - Labs Labs: Abnormal Labs 12/06/18 12/06/18 14:27 16:24 MCHC 35 H RDW 12.7 L Creatinine 0.6 L Laboratory Results - last 24 hr 12/10/18 10:31 WBC 5.7 RBC 3.91 Hgb 11.3 Hct 34.0 MCV 87 MCH 29 MCHC 33 RDW 13.2 Plt Count 147
[2018-12-10] MEDS ORDERED: NARCAN 2 MG/2 ML IV PRN (11:54)
--- NOTE | 2018-12-10 12:44 | Anesthesia Day of Surgery ---
Anesthesia Day of Surgery - Day of Surgery Patient Examined: Yes Patient H&P Reviewed: Yes Patient is NPO: Yes Beta Blockers: No Cardiac Clearance: No Pulmonary Clearance: No Juan's Test: N/A
--- NOTE | 2018-12-10 12:44 | Anesthesia Consultation ---
Anesthesia Consult and Med Hx Date of service: 12/10/18 - Airway Anesthetic Teeth Evaluation: Good ROM Head & Neck: Adequate Mental/Hyoid Distance: Adequate Mallampati Class: Class II Intubation Access Assessment: Good - Pulmonary Exam CTA: Yes - Cardiac Exam Cardiac Exam: RRR - Pre-Operative Health Status ASA Pre-Surgery Classification: ASA2 Proposed Anesthetic Plan: Epidural - Pulmonary Hx Smoking: No Hx Asthma: No Hx Respiratory Symptoms: No SOB: No COPD: No Home Oxygen Therapy: No Hx Pneumonia: No Hx Sleep Apnea: No - Cardiovascular System Hx Hypertension: Yes (dx during beg of ) Hx Coronary Artery Disease: No Hx Heart Attack/AMI: No Hx Angina: No Hx Percutaneous Transluminal Coronary Angioplasty (PTCA): No Hx Cardia Arrhythmia: No Hx Pacemaker: No Hx Internal Defibrillator: No Hx Valvular Heart Disease: No Hx Heart Murmur: No Hx Peripheral Vascular Disease: No - Central Nervous System Hx Neuromuscular Disorder: No Hx Seizures: No CVA: No Hx Back Pain: No Hx Psychiatric Problems: No - Gastrointestinal Hx Ulcer: No Hx Gastroesophageal Reflux Disease: No - Endocrine Hx Renal Disease: No Hx End Stage Renal Disease: No Hx Cirrhosis: No Hx Liver Disease: No Hx Insulin Dependent Diabetes: No Hx Non-Insulin Dependent Diabetes: No Hx Thyroid Disease: No Hx Hypothyroidism: No Hx Hyperthyroidism: No - Hematic Hx Anemia: No Hx Sickle Cell Disease: No - Other Systems Hx Alcohol Use: No
[2018-12-10] MEDS: fentaNYL-BUPIV 2 MCG/ML-0.125% 200 MCG/100 ML BAG EPIDURAL SCH ×2 (12:58→22:08)
[2018-12-10] MEDS ORDERED: ZOFRAN IV ONE (15:30)
[2018-12-10] MEDS ORDERED: ZOFRAN ONE (15:33)
--- NOTE | 2018-12-10 15:53 | Progress Note ---
Assessment and Plan - Patient Problems (1) Encounter for induction of labor Current Visit: Yes Status: Acute Plan to address problem: Continue routine labor orders Continue Pitocin augmentation as tolerated Anticipate (2) Group B Streptococcus carrier, +RV culture, currently Current Visit: Yes Status: Acute Plan to address problem: Continue GBS prophylaxis per hospital policy (3) Chronic hypertension affecting Current Visit: Yes Status: Acute (4) SROM (spontaneous rupture of membranes) Current Visit: Yes Status: Acute Plan to address problem: Temps q hour Notify for any MSAF Subjective - Subjective Date of service: 12/10/18 Principal diagnosis: IUP @ 39 wks and 4 days ; IOL for Chronic HTN Interval history: See admission H & P and OB progress notes Patient reports: loss of fluid, movement normal, other (Comfortable with epidural. SROM occured at 1140 of clear fluids. Jones balloon fell out at 1500.), no vaginal bleeding Objective - Vital Signs Vital Signs: Vital Signs - 12hr 12/10/18 12/10/18 12/10/18 04:41 05:42 05:55 Pulse Rate 96 H 90 90 Blood Pressure 89/54 100/51 108/50 O2 Sat by Pulse Oximetry 12/10/18 12/10/18 12/10/18 06:42 07:43 09:21 Pulse Rate 85 99 H 89 Blood Pressure 102/56 121/82 116/72 O2 Sat by Pulse Oximetry 12/10/18 12/10/18 12/10/18 09:42 10:42 11:42 Pulse Rate 94 H 100 H 88 Blood Pressure 106/58 138/81 122/68 O2 Sat by Pulse Oximetry 12/10/18 12/10/18 12/10/18 12:27 12:28 12:32 Pulse Rate 112 H 109 H 99 H Blood Pressure O2 Sat by Pulse 100 61 L 97 Oximetry 12/10/18 12/10/18 12/10/18 12:33 12:36 12:37 Pulse Rate 90 103 H 95 H Blood Pressure 127/61 O2 Sat by Pulse 76 L 100 Oximetry 12/10/18 12/10/18 12/10/18 12:41 12:42 12:47 Pulse Rate 109 H 99 H 97 H Blood Pressure 126/77 113/70 O2 Sat by Pulse 100 100 Oximetry 12/10/18 12/10/18 12/10/18 12:49 12:52 12:57 Pulse Rate 101 H 98 H 105 H Blood Pressure 117/75 O2 Sat by Pulse 99 100 Oximetry 12/10/18 12/10/18 12/10/18 13:02 13:07 13:12 Pulse Rate 105 H 110 H 102 H Blood Pressure O2 Sat by Pulse 100 100 100 Oximetry 12/10/18 12/10/18 12/10/18 13:17 13:21 13:22 Pulse Rate 102 H 100 H 104 H Blood Pressure 119/71 O2 Sat by Pulse 100 100 Oximetry 12/10/18 12/10/18 12/10/18 13:27 13:32 13:37 Pulse Rate 100 H 104 H 116 H Blood Pressure O2 Sat by Pulse 100 100 99 Oximetry 12/10/18 12/10/18 12/10/18 13:42 13:47 13:51 Pulse Rate 97 H 105 H 102 H Blood Pressure 116/59 O2 Sat by Pulse 100 100 Oximetry 12/10/18 12/10/18 12/10/18 13:52 13:57 14:02 Pulse Rate 100 H 96 H 97 H Blood Pressure O2 Sat by Pulse 100 100 100 Oximetry 12/10/18 12/10/18 12/10/18 14:07 14:12 14:17 Pulse Rate 102 H 98 H 99 H Blood Pressure O2 Sat by Pulse 100 99 100 Oximetry 12/10/18 12/10/18 12/10/18 14:20 14:22 14:27 Pulse Rate 93 H 113 H 117 H Blood Pressure 103/57 O2 Sat by Pulse 100 100 Oximetry 12/10/18 12/10/18 12/10/18 14:32 14:37 14:42 Pulse Rate 100 H 111 H 95 H Blood Pressure O2 Sat by Pulse 100 99 98 Oximetry 12/10/18 12/10/18 12/10/18 14:47 14:51 14:52 Pulse Rate 113 H 101 H 96 H Blood Pressure 110/63 O2 Sat by Pulse 99 99 Oximetry 12/10/18 12/10/18 12/10/18 14:57 15:02 15:07 Pulse Rate 101 H 109 H 114 H Blood Pressure O2 Sat by Pulse 99 99 100 Oximetry 12/10/18 12/10/18 12/10/18 15:12 15:17 15:20 Pulse Rate 91 H 106 H 103 H Blood Pressure 97/53 O2 Sat by Pulse 99 100 Oximetry 12/10/18 12/10/18 12/10/18 15:22 15:27 15:34 Pulse Rate 107 H 97 H 113 H Blood Pressure O2 Sat by Pulse 98 100 100 Oximetry 12/10/18 12/10/18 12/10/18 15:36 15:39 15:44 Pulse Rate 109 H 111 H 105 H Blood Pressure 103/58 O2 Sat by Pulse 100 99 Oximetry - Exam Breasts: deferred Cardiovascular: Regular rate Lungs: Normal air movement Abdomen: Present: other (gravid) Uterus: Present: other (S=D) FHR: category 1 Uterine Contraction Monitor Mode: Internal (IUPC placed at 1545 without difficulty. Pitocin @ 8mu/min.) Cervical Dilatation: 5 Cervical Effacement Percentage: 70 station: -2 Uterine Contraction Frequency (min): 3-4 Uterine Contraction Pattern: Irregular Uterine Tone Measurement Phase: Resting Uterine Contraction Intensity: Moderate Extremities: normal Deep Tendon Reflex Grade: Normal +2 - Labs Labs: Abnormal Labs 12/06/18 12/06/18 14:27 16:24 MCHC 35 H RDW 12.7 L Creatinine 0.6 L Laboratory Results - last 24 hr 12/10/18 12/10/18 10:14 10:31 WBC 5.7 RBC 3.91 Hgb 11.3 Hct 34.0 MCV 87 MCH 29 MCHC 33 RDW 13.2 Plt Count 147 Blood Type A POSITIVE Antibody Screen Negative
--- NOTE | 2018-12-10 19:57 | Progress Note ---
Assessment and Plan - Patient Problems (1) Encounter for induction of labor Current Visit: Yes Status: Acute Plan to address problem: Continue routine labor orders Continue Pitocin augmentation as tolerated Place in high fowlers with frog-legs position and allow to labor down Anticipate (2) Group B Streptococcus carrier, +RV culture, currently Current Visit: Yes Status: Acute Plan to address problem: Continue GBS prophylaxis per hospital policy (3) Chronic hypertension affecting Current Visit: Yes Status: Acute (4) SROM (spontaneous rupture of membranes) Current Visit: Yes Status: Acute Plan to address problem: Temps q hour Notify for any MSAF Subjective - Subjective Date of service: 12/10/18 Principal diagnosis: IUP @ 39 wks and 4 days ; IOL for Chronic HTN Interval history: See admission H & P and OB progress notes Patient reports: loss of fluid (remains clear), movement normal, contractions ("can't feel the ctxs"), other (Comfortable with epidural. SROM occured at 1140 of clear fluids. Jones balloon fell out at 1500.), no vaginal bleeding Objective - Vital Signs Vital Signs: Vital Signs - 12hr 12/10/18 12/10/18 12/10/18 08:00 09:21 09:42 Temperature 98.6 F Pulse Rate 89 94 H Respiratory 14 Rate Blood Pressure 116/72 106/58 Blood Pressure [Left] O2 Sat by Pulse Oximetry 12/10/18 12/10/18 12/10/18 10:42 11:27 11:42 Temperature 98.6 F Pulse Rate 100 H 88 Respiratory 14 Rate Blood Pressure 138/81 122/68 Blood Pressure [Left] O2 Sat by Pulse Oximetry 12/10/18 12/10/18 12/10/18 12:27 12:28 12:32 Temperature Pulse Rate 112 H 109 H 99 H Respiratory Rate Blood Pressure Blood Pressure [Left] O2 Sat by Pulse 100 61 L 97 Oximetry 12/10/18 12/10/18 12/10/18 12:33 12:36 12:37 Temperature Pulse Rate 90 103 H 95 H Respiratory Rate Blood Pressure 127/61 Blood Pressure [Left] O2 Sat by Pulse 76 L 100 Oximetry 12/10/18 12/10/18 12/10/18 12:41 12:42 12:47 Temperature Pulse Rate 109 H 99 H 97 H Respiratory Rate Blood Pressure 126/77 113/70 Blood Pressure [Left] O2 Sat by Pulse 100 100 Oximetry 12/10/18 12/10/18 12/10/18 12:49 12:52 12:57 Temperature Pulse Rate 101 H 98 H 105 H Respiratory Rate Blood Pressure 117/75 Blood Pressure [Left] O2 Sat by Pulse 99 100 Oximetry 12/10/18 12/10/18 12/10/18 13:02 13:07 13:12 Temperature Pulse Rate 105 H 110 H 102 H Respiratory Rate Blood Pressure Blood Pressure [Left] O2 Sat by Pulse 100 100 100 Oximetry 12/10/18 12/10/18 12/10/18 13:17 13:21 13:22 Temperature Pulse Rate 102 H 100 H 104 H Respiratory Rate Blood Pressure 119/71 Blood Pressure [Left] O2 Sat by Pulse 100 100 Oximetry 12/10/18 12/10/18 12/10/18 13:27 13:32 13:37 Temperature Pulse Rate 100 H 104 H 116 H Respiratory Rate Blood Pressure Blood Pressure [Left] O2 Sat by Pulse 100 100 99 Oximetry 12/10/18 12/10/18 12/10/18 13:42 13:47 13:51 Temperature Pulse Rate 97 H 105 H 102 H Respiratory Rate Blood Pressure 116/59 Blood Pressure [Left] O2 Sat by Pulse 100 100 Oximetry 12/10/18 12/10/18 12/10/18 13:52 13:57 14:00 Temperature 98.6 F Pulse Rate 100 H 96 H Respiratory 16 Rate Blood Pressure Blood Pressure [Left] O2 Sat by Pulse 100 100 Oximetry 12/10/18 12/10/18 12/10/18 14:02 14:07 14:12 Temperature Pulse Rate 97 H 102 H 98 H Respiratory Rate Blood Pressure Blood Pressure [Left] O2 Sat by Pulse 100 100 99 Oximetry 12/10/18 12/10/18 12/10/18 14:17 14:20 14:22 Temperature Pulse Rate 99 H 93 H 113 H Respiratory Rate Blood Pressure 103/57 Blood Pressure [Left] O2 Sat by Pulse 100 100 Oximetry 12/10/18 12/10/18 12/10/18 14:27 14:32 14:37 Temperature Pulse Rate 117 H 100 H 111 H Respiratory Rate Blood Pressure Blood Pressure [Left] O2 Sat by Pulse 100 100 99 Oximetry 12/10/18 12/10/18 12/10/18 14:42 14:47 14:51 Temperature Pulse Rate 95 H 113 H 101 H Respiratory Rate Blood Pressure 110/63 Blood Pressure [Left] O2 Sat by Pulse 98 99 Oximetry 12/10/18 12/10/18 12/10/18 14:52 14:57 15:02 Temperature Pulse Rate 96 H 101 H 109 H Respiratory Rate Blood Pressure Blood Pressure [Left] O2 Sat by Pulse 99 99 99 Oximetry 12/10/18 12/10/18 12/10/18 15:07 15:12 15:17 Temperature Pulse Rate 114 H 91 H 106 H Respiratory Rate Blood Pressure Blood Pressure [Left] O2 Sat by Pulse 100 99 100 Oximetry 12/10/18 12/10/18 12/10/18 15:20 15:22 15:27 Temperature Pulse Rate 103 H 107 H 97 H Respiratory Rate Blood Pressure 97/53 Blood Pressure [Left] O2 Sat by Pulse 98 100 Oximetry 12/10/18 12/10/18 12/10/18 15:34 15:36 15:39 Temperature Pulse Rate 113 H 109 H 111 H Respiratory Rate Blood Pressure 103/58 Blood Pressure [Left] O2 Sat by Pulse 100 100 Oximetry 12/10/18 12/10/18 12/10/18 15:44 15:49 15:50 Temperature Pulse Rate 105 H 98 H 99 H Respiratory Rate Blood Pressure 102/58 Blood Pressure [Left] O2 Sat by Pulse 99 99 Oximetry 12/10/18 12/10/18 12/10/18 15:54 15:59 16:04 Temperature Pulse Rate 95 H 102 H 99 H Respiratory Rate Blood Pressure Blood Pressure [Left] O2 Sat by Pulse 100 100 99 Oximetry 12/10/18 12/10/18 12/10/18 16:09 16:14 16:19 Temperature Pulse Rate 100 H 96 H 97 H Respiratory Rate Blood Pressure Blood Pressure [Left] O2 Sat by Pulse 100 100 100 Oximetry 12/10/18 12/10/18 12/10/18 16:20 16:24 16:26 Temperature 98.8 F Pulse Rate 100 H 104 H Respiratory 14 Rate Blood Pressure 107/64 Blood Pressure [Left] O2 Sat by Pulse 99 Oximetry 12/10/18 12/10/18 12/10/18 16:29 16:34 16:39 Temperature Pulse Rate 109 H 93 H 105 H Respiratory Rate Blood Pressure Blood Pressure [Left] O2 Sat by Pulse 99 99 100 Oximetry 12/10/18 12/10/18 12/10/18 16:44 16:49 16:51 Temperature Pulse Rate 91 H 104 H 86 Respiratory Rate Blood Pressure 104/51 Blood Pressure [Left] O2 Sat by Pulse 99 99 Oximetry 12/10/18 12/10/18 12/10/18 16:54 16:59 17:04 Temperature Pulse Rate 99 H 98 H 90 Respiratory Rate Blood Pressure Blood Pressure [Left] O2 Sat by Pulse 99 99 100 Oximetry 12/10/18 12/10/18 12/10/18 17:09 17:14 17:19 Temperature Pulse Rate 96 H 102 H 94 H Respiratory Rate Blood Pressure Blood Pressure [Left] O2 Sat by Pulse 100 98 99 Oximetry 12/10/18 12/10/18 12/10/18 17:22 17:24 17:29 Temperature Pulse Rate 89 91 H 99 H Respiratory Rate Blood Pressure 99/57 Blood Pressure [Left] O2 Sat by Pulse 99 99 Oximetry 12/10/18 12/10/18 12/10/18 17:34 17:39 17:44 Temperature Pulse Rate 100 H 101 H 95 H Respiratory Rate Blood Pressure Blood Pressure [Left] O2 Sat by Pulse 99 100 100 Oximetry 12/10/18 12/10/18 12/10/18 17:49 17:51 17:54 Temperature Pulse Rate 98 H 95 H 110 H Respiratory Rate Blood Pressure 104/58 Blood Pressure [Left] O2 Sat by Pulse 100 100 Oximetry 12/10/18 12/10/18 12/10/18 17:59 18:04 18:09 Temperature Pulse Rate 91 H 105 H 100 H Respiratory Rate Blood Pressure Blood Pressure [Left] O2 Sat by Pulse 100 100 100 Oximetry 12/10/18 12/10/18 12/10/18 18:14 18:19 18:21 Temperature Pulse Rate 103 H 90 96 H Respiratory Rate Blood Pressure 110/62 Blood Pressure [Left] O2 Sat by Pulse 100 100 Oximetry 12/10/18 12/10/18 12/10/18 18:24 18:29 18:34 Temperature Pulse Rate 93 H 97 H 101 H Respiratory Rate Blood Pressure Blood Pressure [Left] O2 Sat by Pulse 99 98 99 Oximetry 12/10/18 12/10/18 12/10/18 18:39 18:44 18:49 Temperature Pulse Rate 110 H 110 H 124 H Respiratory Rate Blood Pressure Blood Pressure [Left] O2 Sat by Pulse 99 100 99 Oximetry 12/10/18 12/10/18 12/10/18 18:50 18:54 18:59 Temperature Pulse Rate 111 H 123 H 125 H Respiratory Rate Blood Pressure 131/64 Blood Pressure [Left] O2 Sat by Pulse 98 99 Oximetry 12/10/18 12/10/18 12/10/18 19:04 19:09 19:13 Temperature 98.3 F Pulse Rate 132 H 114 H 111 H Respiratory 18 Rate Blood Pressure Blood Pressure 131/64 [Left] O2 Sat by Pulse 100 100 99 Oximetry 12/10/18 12/10/18 12/10/18 19:14 19:19 19:20 Temperature Pulse Rate 115 H 114 H 108 H Respiratory Rate Blood Pressure 115/62 Blood Pressure [Left] O2 Sat by Pulse 99 99 Oximetry 12/10/18 12/10/18 12/10/18 19:24 19:36 19:41 Temperature Pulse Rate 126 H 111 H 114 H Respiratory Rate Blood Pressure Blood Pressure [Left] O2 Sat by Pulse 99 97 100 Oximetry 12/10/18 12/10/18 19:46 19:50 Temperature Pulse Rate 114 H 100 H Respiratory Rate Blood Pressure 125/81 Blood Pressure [Left] O2 Sat by Pulse 99 Oximetry - Exam Breasts: deferred Cardiovascular: Regular rate Lungs: Normal air movement FHR: category 1 (145) Uterine Contraction Monitor Mode: Internal Cervical Dilatation: 10 (vertex) Cervical Effacement Percentage: 90 (Pitocin @ 20mu/min) station: 0,+1 Uterine Contraction Frequency (min): 2-3 Uterine Contraction Pattern: Regular Uterine Tone Measurement Phase: Resting Uterine Contraction Intensity: Strong/Firm Extremities: normal - Labs Labs: Abnormal Labs 12/06/18 12/06/18 14:27 16:24 MCHC 35 H RDW 12.7 L Creatinine 0.6 L Laboratory Results - last 24 hr 12/10/18 12/10/18 10:14 10:31 WBC 5.7 RBC 3.91 Hgb 11.3 Hct 34.0 MCV 87 MCH 29 MCHC 33 RDW 13.2 Plt Count 147 Blood Type A POSITIVE Antibody Screen Negative
[2018-12-11] MEDS: TYLENOL PO PRN (01:06)
[2018-12-11] MEDS: PITOCin/NS 20 UNIT/1000ML DRIP 20 UNITS/1,000 ML BAG IV SCH ×2 (01:38→03:50)
[2018-12-11] MEDS ORDERED: ZOFRAN IV PRN (01:46)
[2018-12-11] MEDS ORDERED: TUCKS PAD TP PRN (01:46)
[2018-12-11] MEDS ORDERED: PHENERGAN PO PRN (01:46)
[2018-12-11] MEDS ORDERED: MILK OF MAGNESIA PO PRN (01:46)
[2018-12-11] MEDS ORDERED: BENADRYL PO PRN (01:46)
[2018-12-11] MEDS ORDERED: PERCOCET 5/325 PO PRN (01:49)
[2018-12-11] MEDS ORDERED: SODIUM CHLORIDE FLUSH SYRINGE 10 ML IV NR (02:00)
--- NOTE | 2018-12-11 02:04 | Procedure Note ---
OB Delivery Note - Delivery Date of Delivery: 12/11/18 (0127) Surgeon: JASON JAMES (CNM) Estimated blood loss: 200cc - Vaginal Delivery presentation: vertex Delivery position: OA (Direct OA) Intrapartum events: febrile- temp >100.3, meconium (thick, noted approx 2 hrs prior to delivery. NICU at bedside for delivery.) Delivery induction: oxytocin Delivery augmentation: pitocin Delivery monitor: external FHT, external uterine Route of delivery: Delivery placenta: spontaneous (013) Delivery cord: 3 umbilical vessels Episiotomy: none Delivery laceration: none Anesthesia: epidural Delivery comments: Complete at 1900. Began pushing at 2145 x 2 hrs then rested for 1 hr. Initiated pushing again at 0100 and delivered a viable, non-crying female infant. NICU to room for delivery secondary to thick meconium. Cord double clamped and cut by FOB immediately after delivery and handed off to NICU team for assessment. Placenta delivered spontaneously, disposed per hospital policy. Intact perineum, hemostasis maintained. NICU assessment completed, apgars: 8/9, baby returned to maternal chest for [id number]. Mother and baby stable and safe. - A at 1 minute: 8 at 5 minutes: 9 Infant Gender: Female (Weight: 3233 grams (7 lbs 2 ozs), 19.5 inches)
[2018-12-11] MEDS: IBUPROFEN PO SCH ×3 (04:54→11:37)
--- NOTE | 2018-12-11 06:44 | Post Anesthesia Evaluation ---
- Post Anesthesia Evaluation Patient Participated: Yes Airway Patent: Yes Stable Respiratory Function: Yes Nausea/Vomiting: No Temp > 96.8F: Yes Pain Manageable: Yes Adequeate Hydration: Yes Anesthesia Complications: No Block Receding Appropriately: Yes Patient on Ventilator: No
[2018-12-11] MEDS: LANSINOH TP PRN (11:36)
[2018-12-11] MEDS: PRENATAL VITAMIN PO SCH (11:40)
[2018-12-11] MEDS: FEOSOL PO SCH ×2 (11:40→21:54)
[2018-12-11 14:25] LABS: Hemoglobin 11.1 gm/dl (10.1-14.3)
[2018-12-12] MEDS: IBUPROFEN PO SCH ×5 (00:05→23:16)
[2018-12-12] MEDS: PRENATAL VITAMIN PO SCH (10:54)
[2018-12-12] MEDS: FEOSOL PO SCH ×2 (10:54→23:16)
--- NOTE | 2018-12-12 11:19 | Progress Note ---
Assessment and Plan (1) Normal Spontaneous vaginal Delivery Current admit: Yes Status: Acute Stable Anticipate discharge home in 24 hours Subjective - Subjective Date of service: 12/12/18 Principal diagnosis: PPD#1 s/p Patient reports: appetite normal, voiding normally, pain well controlled, flatus, ambulating normally [place]: doing well, nursing well Objective - Vital Signs Latest vital signs: Vital Signs Temp Pulse Resp BP BP Pulse Ox 12/12/18 09:22 98.6 F 91 H 20 127/87 99 12/12/18 01:00 98.0 F 96 H 20 132/78 99 12/11/18 15:53 97.9 F 104 H 20 138/78 100 12/11/18 13:06 98.3 F 104 H 16 134/87 100 12/11/18 11:37 16 Intake and Output 12/11/18 12/12/18 12/12/18 23:59 07:59 15:59 Intake Total 120 240 Balance 120 240 Intake: Oral 120 240 Other: Total, Intake Amount 120 240 # Voids Void 1 1 - Exam Breasts: Present: normal, Cardiovascular: Present: Regular rate, Normal S1, Normal S2, No murmurs Lungs: Present: Clear to auscultation, Normal air movement Abdomen: Present: normal appearance, soft, normal bowel sounds. Absent: distention Vulva: both: normal Uterus: Present: firm, fundal height at umbilicus Extremities: Present: normal Deep Tendon Reflex Grade: Normal +2
--- NOTE | 2018-12-12 11:20 | Discharge Summary ---
Providers - Providers Date of Admission: 12/06/18 12:21 Date of discharge: 12/13/18 Attending physician: BLAKE CODY 12/11/18 01:51 Consult to [employer] [CONS] Routine Reason For Exam: assistance with , SNS Primary care physician: BLAKE CODY Hospitalization Reason for admission: induction of labor, IUP at term Delivery: Procedure details: See H&P and delivery note Episiotomy: none Laceration: none Other procedures: none complications: none Discharge diagnosis: IUP at term delivered baby: female Condition at discharge: Good Disposition: DC-01 TO HOME OR SELFCARE Plan - Provider Discharge Summary Activity: routine, no sex for 6 weeks, no heavy lifting 4 weeks, no strenuous exercise Diet: routine Instructions: routine Additional instructions: [] Smoking cessation referral if applicable(refer to patient education folder for contact #) [] Refer to [facility] Booklet Call your doctor immediately for: * Fever > 100.5 * Heavy vaginal bleeding ( >1 pad per hour) * Severe persistent headache * Shortness of breath * Reddened, hot, painful area to leg or breast * Drainage or odor from incision. * Keep incision clean and dry at all times and follow doctor's instructions regarding bathing/showering - Follow up plan Follow up: BLAKE CODY MD [Primary Care Provider] - 6 Weeks
[2018-12-12] MEDS: LANSINOH TP PRN (13:00)
[2018-12-13] MEDS: IBUPROFEN PO SCH (05:18)
[2018-12-13] MEDS: LANSINOH TP PRN (09:18)
[2018-12-13] MEDS: FEOSOL PO SCH (09:19)
[2018-12-13] MEDS: PRENATAL VITAMIN PO SCH (09:19)
[2018-12-13 09:25] VITALS: BP 114/71
== END 2018-12-13 10:45 | disposition home or self-care (01) | DRG 774 ==
LOC: LD 12:21 → OB 12-11 03:56
PROVIDERS: ADMIT Obstetrics & Gynecology; ATTEND Obstetrics & Gynecology
PROC: 10E0XZZ Delivery of Products of Conception, External Approach (ICD-10-PCS; principal; 2018-12-11)
PROC: 3E033VJ Introduction of Other Hormone into Peripheral Vein, Percutaneous Approach (ICD-10-PCS; 2018-12-11)
PROC: 3E0R3BZ Introduction of Anesthetic Agent into Spinal Canal, Percutaneous Approach (ICD-10-PCS; 2018-12-11)
PROC: 00HU33Z Insertion of Infusion Device into Spinal Canal, Percutaneous Approach (ICD-10-PCS; 2018-12-11)
DX: O77.0 Labor and delivery complicated by meconium in amniotic fluid (principal); O10.92 Unspecified pre-existing hypertension complicating childbirth; O99.214 Obesity complicating childbirth; O99.824 Streptococcus B carrier state complicating childbirth; R00.0 Tachycardia, unspecified; O75.89 Other specified complications of labor and delivery; Z82.49 Family history of ischemic heart disease and other diseases of the circulatory system; Z83.3 Family history of diabetes mellitus; Z3A.39 39 weeks gestation of pregnancy; Z37.0 Single live birth; Z82.3 Family history of stroke; Z80.9 Family history of malignant neoplasm, unspecified; Z82.5 Family history of asthma and other chronic lower respiratory diseases
CPT/HCPCS: 36415; 59200; 80307; 81001; 82565; 83615; 84450; 84460; 84550; 85014; 85018; 85027; 86592; 86850; 86900; 86901; 87400; G0378; A6250; J0290; J2405; J2590; J7120